=== PATIENT | female | born 1995 | race Native Hawaiian/Other Pacific Islander ===

== ENCOUNTER 2017-04-27 17:59 | Emergency (ER) | payer OTHER ==
[~2017-04-27] VITALS: Ht 165.1 cm; Wt 68.0 kg
[2017-04-27 19:50] VITALS: BP 118/74; TEMP 98
== END 2017-04-27 19:52 | disposition short-term general hospital (02) ==
LOC: ED 17:59
DX: O80 Encounter for full-term uncomplicated delivery (principal); Z3A.37 37 weeks gestation of pregnancy
CPT/HCPCS: 99284

== ENCOUNTER 2017-04-27 19:49 | Outpatient (CLI) | payer OTHER | END 2017-04-27 20:06 | disposition short-term general hospital (02) | LOC: AMB 19:49 | DX: O80 Encounter for full-term uncomplicated delivery (principal); Z3A.37 37 weeks gestation of pregnancy | CPT/HCPCS: A0425; A0427 ==

== ENCOUNTER 2020-02-24 09:33 | Outpatient (CLI) | payer OTHER | END 2020-02-24 20:47 | disposition home or self-care (01) | LOC: RAD 09:33 | DX: F31.9 Bipolar disorder, unspecified (principal); F20.9 Schizophrenia, unspecified; F90.9 Attention-deficit hyperactivity disorder, unspecified type; F44.81 Dissociative identity disorder; M54.9 Dorsalgia, unspecified; F43.10 Post-traumatic stress disorder, unspecified ==

== ENCOUNTER 2021-06-12 07:23 | Emergency (ER) | payer OTHER ==
[~2021-06-12] VITALS: Ht 165.1 cm; Wt 61.2 kg
[2021-06-12 07:35] VITALS: TEMP 97.5
[2021-06-12 09:07] LABS: PLATELET COUNT 316 K/uL (152-353)
[2021-06-12 09:10] LABS: POTASSIUM 4.1 mmol/L (3.6-5.2)
[2021-06-12 09:48] VITALS: BP 115/69
== END 2021-06-12 09:48 | disposition home or self-care (01) ==
LOC: ED 07:23
PROVIDERS: Hospitalist
DX: N94.10 Unspecified dyspareunia (principal); N93.8 Other specified abnormal uterine and vaginal bleeding
CPT/HCPCS: 80048; 81000; 81025; 85027; 99283

== ENCOUNTER 2021-08-17 13:30 | Emergency (ER) | payer OTHER ==
[~2021-08-17] VITALS: Ht 165.1 cm; Wt 61.2 kg
[2021-08-17 13:42] VITALS: BP 117/69; TEMP 97.3
== END 2021-08-17 14:26 | disposition home or self-care (01) ==
LOC: ED 13:30
DX: S91.332A Puncture wound without foreign body, left foot, initial encounter (principal); W45.0XXA Nail entering through skin, initial encounter; Y92.89 Other specified places as the place of occurrence of the external cause
CPT/HCPCS: 96372; 99283; J0690; J0696; J1885

== ENCOUNTER 2021-10-02 21:56 | Emergency (ER) | payer OTHER ==
[~2021-10-02] VITALS: Ht 165.1 cm; Wt 56.7 kg
[2021-10-02 22:38] LABS: PLATELET COUNT 336 K/uL (152-353)
[2021-10-02 22:39] LABS: POTASSIUM 4.2 mmol/L (3.6-5.2); SODIUM 144 mmol/L (136-145)
[2021-10-03 07:00] VITALS: TEMP 97.7
[2021-10-03 07:05] LABS: PLATELET COUNT 296 K/uL (152-353)
[2021-10-03 07:15] LABS: POTASSIUM 3.6 mmol/L (3.6-5.2)
[2021-10-03 17:00] VITALS: BP 118/78
== END 2021-10-03 18:35 | disposition other institution (70) ==
LOC: ED 21:56
PROVIDERS: Hospitalist
PROC: 0T9B70Z Drainage of Bladder with Drainage Device, Via Natural or Artificial Opening (ICD-10-PCS; principal; 2021-10-02)
DX: R41.82 Altered mental status, unspecified (principal); F25.8 Other schizoaffective disorders; F19.10 Other psychoactive substance abuse, uncomplicated; Z91.52 Personal history of nonsuicidal self-harm; R46.89 Other symptoms and signs involving appearance and behavior; Z11.52 Encounter for screening for COVID-19
CPT/HCPCS: 36415; 51702; 80048; 80053; 80307; 80320; 80329; 81000; 81025; 85027; 87635; 93005; 96360; 96365; 96372; 96375; 96376; 99284; 99285; J0696; J1200; J1630; J2060; J3411; J3475; J3490; J7060; U0003

== ENCOUNTER 2021-12-27 11:34 | Emergency (ER) | payer OTHER ==
[~2021-12-27] VITALS: Ht 165.1 cm; Wt 56.7 kg
[2021-12-27 11:40] VITALS: BP 111/70; TEMP 97
== END 2021-12-27 13:41 | disposition home or self-care (01) ==
LOC: ED 11:34
DX: N89.8 Other specified noninflammatory disorders of vagina (principal)
CPT/HCPCS: 81025; 87210; 87220; 87490; 87590; 99283

== ENCOUNTER 2022-01-14 13:24 | Emergency (ER) | payer OTHER ==
[~2022-01-14] VITALS: Ht 165.1 cm; Wt 56.7 kg
[2022-01-14 13:41] VITALS: TEMP 98
[2022-01-14 14:23] LABS: PLATELET COUNT 392 K/uL (152-353)
[2022-01-14 14:30] LABS: POTASSIUM 3.5 mmol/L (3.6-5.2)
[2022-01-14 17:53] VITALS: BP 118/74
== END 2022-01-14 17:54 | disposition home or self-care (01) ==
LOC: ED 13:24
PROVIDERS: Family Medicine
DX: R10.32 Left lower quadrant pain (principal); F12.90 Cannabis use, unspecified, uncomplicated; F15.90 Other stimulant use, unspecified, uncomplicated
CPT/HCPCS: 80053; 80307; 81002; 81025; 82150; 83690; 85027; 96374; 96375; 99284; J1885; J2405

== ENCOUNTER 2022-01-18 18:16 | Emergency (ER) | payer OTHER ==
[~2022-01-18] VITALS: Ht 165.1 cm; Wt 56.7 kg
[2022-01-18 18:26] VITALS: BP 118/73; TEMP 97.8
== END 2022-01-18 19:35 | disposition home or self-care (01) ==
LOC: ED 18:16
DX: A54.89 Other gonococcal infections (principal)
CPT/HCPCS: 96372; 99282; J0696

== ENCOUNTER 2022-09-26 22:40 | Emergency (ER) | payer OTHER ==
[~2022-09-26] VITALS: Ht 165.1 cm; Wt 63.5 kg
[2022-09-27 01:25] VITALS: BP 134/79; TEMP 98
== END 2022-09-27 01:25 | disposition home or self-care (01) ==
LOC: ED 22:40
DX: L03.114 Cellulitis of left upper limb (principal); L03.116 Cellulitis of left lower limb; L03.317 Cellulitis of buttock
CPT/HCPCS: 96372; 99282; J1170; J1885; J2405

== ENCOUNTER 2022-11-18 13:36 | Emergency (ER) | payer OTHER ==
[~2022-11-18] VITALS: Ht 165.1 cm; Wt 72.6 kg
[2022-11-18 13:40] VITALS: BP 113/71; TEMP 97.4
[2022-11-18 15:41] LABS: POTASSIUM 3.8 mmol/L (3.6-5.2)
[2022-11-18 15:47] LABS: PLATELET COUNT 352 K/uL (152-353)
== END 2022-11-18 18:02 | disposition home or self-care (01) ==
LOC: ED 13:36
PROVIDERS: Family Medicine
DX: R10.30 Lower abdominal pain, unspecified (principal); F19.90 Other psychoactive substance use, unspecified, uncomplicated; F17.210 Nicotine dependence, cigarettes, uncomplicated
CPT/HCPCS: 36415; 80053; 80307; 81000; 81025; 82150; 83690; 85027; 96372; 99283; J1885